=== PATIENT | male | born 1995 | race Two or more races ===

== ENCOUNTER 2016-09-12 06:57 | Emergency (ER) | payer MEDICAID ==
[~2016-09-12] VITALS: Ht 160 cm; Wt 81.6 kg
[2016-09-12 07:00] VITALS: BP 126/72
== END 2016-09-12 11:43 | disposition left against medical advice (07) ==
LOC: ER 06:58
DX: F41.9 Anxiety disorder, unspecified (principal); Z53.21 Procedure and treatment not carried out due to patient leaving prior to being seen by health care provider
CPT/HCPCS: 93005

== ENCOUNTER → 2019-11-23 | Emergency (ER) | payer MEDICAID ==
[~2019-11-23] VITALS: Ht 157.5 cm; Wt 86.2 kg
== END | disposition home or self-care (01) ==
LOC: ER 20:40
DX: Z02.89 Encounter for other administrative examinations (principal)